=== PATIENT | female | born 2000 | race Caucasian/White ===

== ENCOUNTER 2021-05-06 12:29 | Emergency (ER) | payer BC, SELFPAY ==
[2021-05-06 13:57] VITALS: BP 121/74; PULSE 67; RESP 18; TEMP 36.6; O2SAT 100
--- NOTE | 2021-05-06 14:53 | ED.URI ---
HPI - URI/Sore Throat General Chief Complaint: Upper Respiratory Infection Stated Complaint: throat irritation,cough Time Seen by Provider: 05/06/21 14:45 Source: patient, RN notes reviewed and old records reviewed Mode of arrival: ambulatory Limitations: no limitations History of Present Illness HPI Narrative: 20-year-old female who presents to [facility] care with complaints of acute discomfort to her throat with swollen tonsils. Patient states feels like razor blades in her throat today. Patient states she has had some sore throat since May 02 with cough increasing since yesterday. Patient denies any fevers or any shortness of breath or any nausea, vomiting, or diarrhea. Patient reports that she had PCR COVID sent thru [employer] and is awaiting results. Patient had Covid in December of 2019 and she had last COVID shot in October of 2020 she reports that she had Flu shot. MD elicited complaint: sore throat Related Data Home Medications Medication Instructions Recorded Confirmed escitalopram oxalate 20 mg PO DAILY 05/06/21 05/06/21 levonorgestrel [Mirena] See Rx Instructions .ROUTE .COMPLEX 05/06/21 05/06/21 Allergies Allergy/AdvReac Type Severity Reaction Status Date / Time No Known Allergies Allergy Verified 05/06/21 14:25 Review of Systems Review of Systems: CONSTITUTIONAL: Denies fever, chills, or sweats. EYES: Denies visual changes, redness, or discharge. ENT: Positive for rhinorrhea, congestion, sore throat, no otalgia. CARDIOVASCULAR: Denies chest pain, palpitations, or edema. RESPIRATORY: positive for cough no dyspnea. GASTROINTESTINAL: Denies abdominal pain, nausea, vomiting, or diarrhea. GENITOURINARY: Denies dysuria or hematuria. SKIN: Denies rash or itching. MUSCULOSKELETAL: Denies back pain, joint pain, or myalgia. NEUROLOGIC: Denies headache, numbness, or weakness. PSYCHIATRIC: Denies anxiety or depression. All systems reviewed & are unremarkable except as noted in HPI and below PMFSH Past Medical History Medical History (Updated 05/06/21 @ 15:30 by Yumiko Lau NP) COVID-19 Surgical History Surgical History (Updated 05/06/21 @ 15:31 by Yumiko Lau NP) No history of previous surgery Social History Social History (Updated 05/06/21 @ 15:30 by Yumiko Lau NP) Tobacco type: e-cigarettes/vaping Alcohol intake: never Substance use: never Living arrangements: with family Gender identity (if verbalized by the patient): Female Comments At time of signature, agree with nursing past medical, surgical, social and family history. There is no relevant family history pertinent to the presenting complaint Exam Narrative: GENERAL: Well-appearing, well-nourished, and in no acute distress. HEAD: Normocephalic, atraumatic. EYES: PERRLA and EOMI. ENT: Nares red with clear rhinorrhea no epistaxis. Mucous membranes moist.TM's normal with good light reflex, throat red with no exudates or lesions, tonsils enlarged and red NECK: Supple. no lymphadenopathy CHEST: Clear to auscultation. No respiratory distress.cough present.SAO2 100% on room air HEART: Regular rate and rhythm. No murmur heard. Normal peripheral pulses. ABDOMEN: Soft, nontender, nondistended, normal active bowel sounds. EXTREMITIES: Normal range of motion. No edema. SKIN: Warm, dry, no rash. NEURO: No focal deficits. Alert and oriented x3. Course Course Level of Care: Express Care Visit Vital Signs Vital signs: Vital Signs Temperature 36.6 C 05/06/21 13:57 Pulse Rate 67 05/06/21 13:57 Respiratory Rate 18 05/06/21 13:57 Blood Pressure 121/74 05/06/21 13:57 Pulse Oximetry 100 05/06/21 13:57 Temperature 36.6 C 05/06/21 13:57 Pulse Rate 67 05/06/21 13:57 Respiratory Rate 18 05/06/21 13:57 Blood Pressure 121/74 05/06/21 13:57 Pulse Oximetry 100 05/06/21 13:57 MDM - URI/Sore Throat Differential Diagnosis Differential diagnosis: Likely upper respiratory infection, sinusit
== END 2021-05-06 15:22 | disposition home or self-care (01) ==
PROVIDERS: Emergency Provider Registered Nurse
DX: J03.90 Acute tonsillitis, unspecified (principal); F17.290 Nicotine dependence, other tobacco product, uncomplicated; Z86.16 Personal history of COVID-19
CPT/HCPCS: 87081; 87880; 99213; G0463